=== PATIENT | female | born 1995 | race Hispanic/Latino ===

== ENCOUNTER 2018-01-09 22:44 | Observation (INO) | payer MEDICAID ==
[~2018-01-09] VITALS: Ht 160 cm; Wt 52.6 kg
[2018-01-09] MEDS ORDERED: TERC20CR4 VG (23:40)
[2018-01-09 23:41] VITALS: BP 121/64
[2018-01-09 23:50] LABS: BILIRUBIN,URINE Negative (NEGATIVE); COLOR,URINE Yellow (YELLOW); GLUCOSE, URINE (UA) Negative (NEGATIVE); KETONES,URINE Negative (NEGATIVE); LEUKOCYTE ESTERASE ,URINE Large (NEGATIVE); NITRATE,URINE Negative (NEGATIVE); OCCULT BLOOD,URINE Small (NEGATIVE); PH,URINE 7.5 (5.0-8.0); PROTEIN,URINE POS 1+ (NEGATIVE)
[2018-01-09 23:54] LABS: APPEARANCE,URINE CLOUDY (CLEAR)
[2018-01-10 00:04] LABS: BACTERIA,URINE Moderate /HPF (None Seen); SQUAMOUS EPITHELIAL CELL,UR 0-2 /HPF (0-2); WBC,URINE >100 /HPF (0-1)
[2018-01-10] MEDS ORDERED: [UNRECOGNIZED DRUG - OTHER] (00:15)
[2018-01-10] MEDS ORDERED: [UNRECOGNIZED DRUG - MIXTURE] VG (00:15)
[2018-01-10 00:47] LABS: AMPHET/METH SCREEN,URINE NEGATIVE (NEGATIVE); BARBITURATE SCREEN, URINE NEGATIVE (NEGATIVE); BENZODIAZEPINES SCREEN,URINE NEGATIVE (NEGATIVE); CANNABINOID SCREEN,URINE NEGATIVE (NEGATIVE); COCAINE SCREEN,URINE NEGATIVE (NEGATIVE); OPIATE SCREEN,URINE NEGATIVE (NEGATIVE); PHENCYCLIDINE SCREEN,URINE NEGATIVE (NEGATIVE)
[2018-01-10] MEDS ORDERED: CEFAZOLIN SODIUM 1 GM VIAL IVP SCH (01:00)
[2018-01-10] MEDS: LACTATED RINGERS 1000ML 1,000 ML IV PRN ×2 (01:25→06:17)
[2018-01-10 01:30] VITALS: BP 110/69
== END 2018-01-10 09:00 | disposition home or self-care (01) ==
LOC: EDH 22:44 → LDH 22:45
PROVIDERS: ADMIT Obstetrics & Gynecology; ATTEND Obstetrics & Gynecology
DX: O26.852 Spotting complicating pregnancy, second trimester (principal); O26.892 Other specified pregnancy related conditions, second trimester; N89.8 Other specified noninflammatory disorders of vagina; R10.31 Right lower quadrant pain; Z3A.19 19 weeks gestation of pregnancy
CPT/HCPCS: 80305; 81001; 96361 ×2; 96374; 99285; G0378 ×10; J0690; J7120 ×2; 96360

== ENCOUNTER 2022-12-10 04:53 | Emergency (ER) | payer OTHER, MEDICAID ==
[~2022-12-10] VITALS: Ht 160 cm; Wt 61.2 kg
[~2022-12-10 04:53] MED LIST: TERC20CR4 VG; [UNRECOGNIZED DRUG - MIXTURE] VG; [UNRECOGNIZED DRUG - OTHER]
[2022-12-10 04:55] VITALS: BP 137/76
[2022-12-10] MEDS ORDERED: CEFTRIAXONE 1G VIAL ONE (05:25)
[2022-12-10] MEDS ORDERED: AMOX500C2 PO (05:27)
[2022-12-10] MEDS ORDERED: ACETAMINOPHEN 325 MG TAB PO ONE (05:30)
[2022-12-10] MEDS ORDERED: CEFTRIAXONE 1G VIAL IM ONE (05:30)
== END 2022-12-10 05:51 | disposition home or self-care (01) ==
LOC: EDH 04:53
DX: J03.90 Acute tonsillitis, unspecified (principal); H92.02 Otalgia, left ear; Z79.899 Other long term (current) drug therapy; Z98.890 Other specified postprocedural states
CPT/HCPCS: 99283; 96372; J0696

== ENCOUNTER 2023-01-07 21:39 | Observation (INO) | payer OTHER, MEDICAID ==
[~2023-01-07] VITALS: Ht 160 cm; Wt 64.9 kg
[~2023-01-07 21:39] MED LIST changes: +AMOX500C2 PO
[2023-01-07 22:06] VITALS: BP 133/89
[2023-01-07] MEDS ORDERED: ACETAMINOPHEN 500 MG TABLET PO ONE (22:30)
[2023-01-07] MEDS ORDERED: PREN-196 PO (22:31)
[2023-01-07] MEDS ORDERED: ASPI-1197 PO (22:31)
[2023-01-07 22:49] LABS: APPEARANCE,URINE CLEAR (CLEAR); BILIRUBIN,URINE NEGATIVE (NEGATIVE); COLOR,URINE LIGHT-YELLOW (YELLOW); GLUCOSE, URINE (UA) NEGATIVE (NEGATIVE); KETONES,URINE NEGATIVE (NEGATIVE); LEUKOCYTE ESTERASE ,URINE NEGATIVE Leu/uL (NEGATIVE); NITRATE,URINE NEGATIVE (NEGATIVE); OCCULT BLOOD,URINE NEGATIVE (NEGATIVE); PROTEIN,URINE NEGATIVE (NEGATIVE); UROBILINOGEN,URINE 0.2 mg/dL (0.2-1.0)
[2023-01-07] MEDS: LACTATED RINGERS 1000ML 1,000 ML IV SCH (22:49)
[2023-01-07 22:56] LABS: AMPHET/METH SCREEN,URINE NEGATIVE (NEGATIVE); BARBITURATE SCREEN, URINE NEGATIVE (NEGATIVE); BENZODIAZEPINES SCREEN,URINE NEGATIVE (NEGATIVE); CANNABINOID SCREEN,URINE NEGATIVE (NEGATIVE); COCAINE SCREEN,URINE NEGATIVE (NEGATIVE); OPIATE SCREEN,URINE NEGATIVE (NEGATIVE); PHENCYCLIDINE SCREEN,URINE NEGATIVE (NEGATIVE)
[2023-01-07 23:18] LABS: BASOPHILS % (AUTO) 0.2 % (0.0-5.0); EOSINOPHILS % (AUTO) 1.1 % (0.0-8.0); HEMATOCRIT 35.1 % (36-48); MEAN CORPUSCULAR HEMOGLOBIN 26.8 pg (27.0-33.0); MEAN CORPUSCULAR HGB CONC 32.5 g/dL (32.0-36.0); MEAN CORPUSCULAR VOLUME 82.6 fL (79-99); MONOCYTES % (AUTO) 9.3 % (3.0-13.0); NEUTROPHILS % (AUTO) 76.3 % (40.0-77.0); PLATELET COUNT (AUTO) 227 K/uL (130-400); RED BLOOD CELL COUNT(AUTO) 4.25 MIL/uL (4.00-5.50); RED CELL DISTRIBUTION WIDTH 14.1 % (11.0-15.5); WHITE BLOOD COUNT (AUTO) 9.5 K/uL (4.8-10.8)
[2023-01-07 23:26] LABS: CREATININE 0.5 mg/dL (0.5-1.5); POTASSIUM 3.4 mmol/L (3.5-5.1)
[2023-01-07 23:29] LABS: INR 0.93 (0.85-1.15)
[2023-01-07 23:31] LABS: ALBUMIN 2.7 g/dL (3.5-5.0); TOTAL PROTEIN, SERUM 6.6 g/dL (6.0-8.3); URIC ACID 3.1 mg/dL (2.6-7.2)
[2023-01-08] MEDS ORDERED: MEPERIDINE-PF 50 MG/ML SYG IVP PRN (01:30)
[2023-01-08] MEDS ORDERED: PROMETHAZINE HCL 25 MG/ML 1ML AMPULE IM PRN (01:30)
[2023-01-08] MEDS ORDERED: ONDANSETRON 4MG INJ 8 MG in 0.9%NACL 50ML 50 ML IVP PRN (01:30)
[2023-01-08] MEDS: LACTATED RINGERS 1000ML 1,000 ML IV SCH ×2 (07:00→15:01)
[2023-01-08] MEDS ORDERED: ACETAMINOPHEN 500 MG TABLET PO PRN (08:30)
[2023-01-08] MEDS ORDERED: AZITHROMYCIN 500MG+NS 250ML IVPB SCH (08:30)
[2023-01-08] MEDS ORDERED: AZITHROMYCIN 500MG+NS 250ML 250 ML IVPB SCH (09:00)
[2023-01-08] MEDS ORDERED: OSELTAMIVIR PHOSPHATE 75 MG CAP PO SCH (09:00)
== END 2023-01-08 15:07 | disposition home or self-care (01) ==
LOC: EDH 21:39 → UNDOADMOB 22:15 → LDH 22:15 → WSH 01-08 09:48
PROVIDERS: ADMIT Obstetrics & Gynecology; ATTEND Obstetrics & Gynecology
DX: O26.893 Other specified pregnancy related conditions, third trimester (principal); Z20.822 Contact with and (suspected) exposure to COVID-19; R03.0 Elevated blood-pressure reading, without diagnosis of hypertension; R51.9 Headache, unspecified; Z3A.35 35 weeks gestation of pregnancy; Z79.899 Other long term (current) drug therapy
CPT/HCPCS: 96361 ×3; 59025; 84550; 80053; 80305; 85025; 85384; 85610; 85730; 86850; 86900; 86901; 81003; 36415; 96365; 87804 ×2; 87426; G0378 ×17; G0379; J7120; J0456; 96360

== ENCOUNTER 2023-04-21 12:19 | Emergency (ER) | payer BC, MEDICAID ==
[~2023-04-21] VITALS: Ht 160 cm; Wt 52.2 kg
[~2023-04-21 12:19] MED LIST changes: +ASPI-1197 PO; +PREN-196 PO
[2023-04-21] MEDS ORDERED: 0.9%NACL 1000ML 1,000 ML IV ONE (13:30)
[2023-04-21 13:49] LABS: BASOPHILS # (AUTO) 0.03 K/uL (0.00-0.20); BASOPHILS % (AUTO) 0.3 % (0.0-5.0); IMMATURE GRANULOCYTE ABSOLUTE 0.03 K/uL (0-1); LYMPHOCYTES # (AUTO) 2.4 K/uL (1.0-4.8); MEAN CORPUSCULAR HGB CONC 31.6 g/dL (32.0-36.0); MEAN CORPUSCULAR VOLUME 76.1 fL (79-99); MONOCYTES % (AUTO) 9.3 % (3.0-13.0); NEUTROPHILS # (AUTO) 7.3 K/uL (1.8-7.7); NEUTROPHILS % (AUTO) 68.1 % (40.0-77.0); PLATELET COUNT (AUTO) 327 K/uL (130-400); RED BLOOD CELL COUNT(AUTO) 5.78 MIL/uL (4.00-5.50); RED CELL DISTRIBUTION WIDTH 16.2 % (11.0-15.5); WHITE BLOOD COUNT (AUTO) 10.7 K/uL (4.8-10.8)
[2023-04-21 14:04] LABS: ALBUMIN 4.2 g/dL (3.5-5.0); BILIRUBIN,TOTAL 0.3 mg/dL (0.2-1.0); CREATININE 0.7 mg/dL (0.5-1.5); POTASSIUM 3.4 mmol/L (3.5-5.1)
[2023-04-21 14:13] LABS: HCG QUALITATIVE NEGATIVE (NEGATIVE)
[2023-04-21 15:07] LABS: ACETAMINOPHEN < 1 mcg/mL (10-30); ALCOHOL, BLOOD < 3 mg/dL (0-10); CREATINE KINASE, TOTAL 410 U/L (21-232); SALICYLATE < 2.8 mg/dL (2.8-20.0)
[2023-04-21 16:58] LABS: AMPHET/METH SCREEN,URINE NEGATIVE (NEGATIVE); BARBITURATE SCREEN, URINE NEGATIVE (NEGATIVE); BENZODIAZEPINES SCREEN,URINE NEGATIVE (NEGATIVE); CANNABINOID SCREEN,URINE NEGATIVE (NEGATIVE); COCAINE SCREEN,URINE NEGATIVE (NEGATIVE); OPIATE SCREEN,URINE NEGATIVE (NEGATIVE); PHENCYCLIDINE SCREEN,URINE NEGATIVE (NEGATIVE)
[2023-04-21 17:34] VITALS: BP 105/66; PULSE 92; RESP 15; O2SAT 99
== END 2023-04-21 16:57 | disposition short-term general hospital (02) ==
LOC: EDH 12:19
DX: T74.21XA Adult sexual abuse, confirmed, initial encounter (principal); I10 Essential (primary) hypertension
CPT/HCPCS: 99285; 71045; 82550; 83735; 84484; 80053; 80305; 84703; 83690; 85025; 86701; 87390; 36415; 93005; G0481